=== PATIENT | male | born 1990 | race Caucasian/White ===

== ENCOUNTER 2017-04-14 19:43 | Emergency (ER) | payer OTHER ==
[~2017-04-14] VITALS: Ht 175.3 cm; Wt 81.7 kg
[2017-04-14] MEDS ORDERED: NORCO 5-325 TA1 EACH PO (22:24)
[2017-04-14 22:30] VITALS: BP 120/82
== END 2017-04-14 22:39 | disposition home or self-care (01) ==
LOC: ER 19:43
DX: K40.90 Unilateral inguinal hernia, without obstruction or gangrene, not specified as recurrent (principal); N50.811 Right testicular pain